=== PATIENT | female | born 1985 | race Caucasian/White ===

== ENCOUNTER 2016-12-04 18:25 | Outpatient (CLI) | payer OTHER ==
[~2016-12-04 18:25] MED LIST: MOTRIN800 MG PO; PERCOCET 5/31 TABLET PO; PRENATAL TABLE1 EAC3 PO
[2016-12-04 18:39] VITALS: BP 109/59
[2016-12-04 19:12] VITALS: BP 114/64
[2016-12-04 19:20] LABS: EOSINOPHIL COUNT 0.1 K/uL (0-0.3); HEMATOCRIT 33.5 % (36.0-46.0); IMMATURE GRANULOCYTE COUNT 0.1 K/uL; INSTRUMENT ABS NEUTROPHIL CT 6.2 K/uL; LYMPHOCYTE COUNT 1.4 K/uL (1.0-2.8); MCH 31.4 PG (29.0-34.0); MCHC 34.6 G/DL (30.0-36.0); MCV 90.8 FL (83-99); MEAN PLAT.VOLUME 11.5 uM^3 (9.5-12.4); MONOCYTE (%) 5.5 % (3-12); MONOCYTE COUNT 0.5 K/uL (0-0.8); NEUTROPHIL (%) 74.8 % (45-76); NEUTROPHIL COUNT 6.2 K/uL (1.8-6.4); PLATELET COUNT 151 K/uL (156-360); RBC DIS.WIDTH-CV 12.1 % (11.8-14.6); RBC DIS.WIDTH-SD 39.9 % (39-53); RED BLOOD COUNT 3.69 M/uL (3.80-5.20); WHITE BLOOD COUNT 8.2 K/uL (4.1-10.2)
[2016-12-04 20:06] VITALS: BP 113/63
[2016-12-04 20:53] VITALS: BP 115/58
[2016-12-04 22:32] VITALS: BP 108/66
== END 2016-12-04 23:20 | disposition home or self-care (01) ==
LOC: LDRP-OP 18:25 → 2WEST 18:28
PROVIDERS: Midwife
DX: Z03.79 Encounter for other suspected maternal and fetal conditions ruled out (principal); Z3A.24 24 weeks gestation of pregnancy; W19.XXXA Unspecified fall, initial encounter
CPT/HCPCS: 59025; 76805; 85025; 85460; G0378

== ENCOUNTER 2017-03-08 01:01 | Inpatient (IN) | payer OTHER ==
[~2017-03-08] VITALS: Ht 160 cm; Wt 81.6 kg
[2017-03-08] VITALS (10 sets, daily range): BP systolic 114–134; BP diastolic 70–85
[2017-03-08 01:55] LABS: EOSINOPHIL (%) 0.2 % (0-5); HEMATOCRIT 32.8 % (36.0-46.0); IMMATURE GRANULOCYTE (%) 1.1 % (0.0-0.7); IMMATURE GRANULOCYTE COUNT 0.2 K/uL; INSTRUMENT ABS NEUTROPHIL CT 12.2 K/uL; MCH 31.6 PG (29.0-34.0); MCHC 35.7 G/DL (30.0-36.0); MCV 88.6 FL (83-99); MONOCYTE (%) 5.8 % (3-12); MONOCYTE COUNT 0.8 K/uL (0-0.8); NEUTROPHIL (%) 85.9 % (45-76); NEUTROPHIL COUNT 12.2 K/uL (1.8-6.4); PLATELET COUNT 107 K/uL (156-360); RBC DIS.WIDTH-SD 38.5 % (39-53); WHITE BLOOD COUNT 14.2 K/uL (4.1-10.2)
[2017-03-08] MEDS ORDERED: MOTRIN800 MG PO (02:28)
[2017-03-08 09:31] LABS: HEMATOCRIT 30.7 % (36.0-46.0); MCH 32.7 PG (29.0-34.0); MCHC 36.5 G/DL (30.0-36.0); MCV 89.8 FL (83-99); PLATELET COUNT 130 K/uL (156-360); RBC DIS.WIDTH-CV 12.3 % (11.8-14.6); RBC DIS.WIDTH-SD 39.6 % (39-53); RED BLOOD COUNT 3.42 M/uL (3.80-5.20); WHITE BLOOD COUNT 15.9 K/uL (4.1-10.2)
[2017-03-09 23:28] VITALS: BP 115/65
[2017-03-10 07:26] VITALS: BP 119/76
== END 2017-03-10 11:52 | disposition home or self-care (01) | DRG 775 ==
LOC: LDRP-OP 01:01 → 2WEST 01:02 → LDRP-OP 04-21 23:35
PROVIDERS: Nurse Practitioner; Obstetrics & Gynecology
PROC: 10E0XZZ Delivery of Products of Conception, External Approach (ICD-10-PCS; principal; 2017-03-08)
DX: O70.0 First degree perineal laceration during delivery (principal); O62.2 Other uterine inertia; O99.02 Anemia complicating childbirth; D62 Acute posthemorrhagic anemia; O99.824 Streptococcus B carrier state complicating childbirth; O99.89 Other specified diseases and conditions complicating pregnancy, childbirth and the puerperium; L40.50 Arthropathic psoriasis, unspecified; Z3A.38 38 weeks gestation of pregnancy; Z37.0 Single live birth
CPT/HCPCS: 85025; 85027; J0290; J0595; J7050; J7120

== ENCOUNTER 2017-12-19 21:25 | Emergency (ER) | payer OTHER ==
[~2017-12-19] VITALS: Ht 157.5 cm; Wt 71.9 kg
[2017-12-19] MEDS ORDERED: NAPROSYN500 MG PO (23:02)
[2017-12-19 23:28] VITALS: BP 151/97
== END 2017-12-19 23:29 | disposition home or self-care (01) ==
LOC: EXP 21:25 → EME 21:25 → EXP 23:29
DX: M79.662 Pain in left lower leg (principal); R03.0 Elevated blood-pressure reading, without diagnosis of hypertension
CPT/HCPCS: 93971; 99281; 99283